=== PATIENT | male | born 1960 | race Caucasian/White ===

== ENCOUNTER 2016-12-24 19:34 | Emergency (ER) | payer SELFPAY ==
[~2016-12-24] VITALS: Ht 182.9 cm; Wt 83.9 kg
--- NOTE | 2016-12-24 20:18 | PHYS DOC ---
Adult General Chief Complaint Chief Complaint: RIB PAIN HPI HPI Patient is a 56 year old M who presents with fall off a ladder. Patient states he was cleaning out gutters at his house and fell off the ladder approximately 10 feet landing on a concrete slab that his left side and chest. Patient denied any trauma to the head or loss of consciousness. Patient denied any other injuries to the extremities upper and lower. Patient complains of left lower chest and left upper quadrant pain. Patient is brought in the emergency room by POV. Patient has no other complaints. Review of Systems Review of Systems GEN: Denies fevers, chills, sweats HEENT: Denies blurred vision, sore throat CV: Left chest wall pain RESP: Denies shortness of air, cough GI: Left upper quadrant pain NEURO: Denies confusion, dizziness MSK: Denies weakness, joint pain/swelling Current Medications Current Medications Current Medications Medications (Trade) Dose Ordered Sig/Linda Start Time Stop Time Status Last Admin Dose Admin Fentanyl Citrate (Fentanyl 2ml Vial) 50 mcg 1X ONCE 12/24/16 22:00 12/24/16 22:01 DC 12/24/16 22:10 50 MCG Info (Do NOT chart on this entry -- for MONITORING) 1 each PRN DAILY PRN 12/24/16 21:00 12/26/16 20:59 Iohexol (Omnipaque 300 Mg/ml) 75 ml 1X ONCE 12/24/16 20:45 12/24/16 20:53 DC 12/24/16 23:03 75 ML Allergies Allergies Allergies Coded Allergies Type Severity Reaction Last Updated Verified No Known Drug Allergies 12/24/16 No Physical Exam Physical Exam GEN.: No apparent distress. Alert and oriented. HEENT: Head is normocephalic, atraumatic NECK: Supple. LUNGS: CTAB.\ CHEST: Positive tender to palpation to the left chest wall midaxillary to the lower ribs HEART: RRR, S1, S2 present. Peripheral pulses intact ABDOMEN: Soft, left upper quadrant tenderness palpation, rebound tenderness, no abdominal distention. Positive bowel sounds. EXTREMITIES: Without any cyanosis. NEUROLOGIC: Normal speech, normal tone PSYCHIATRIC: Normal affect, normal mood. SKIN: No ulcerations Current Patient Data Vital Signs Vital Signs Date Time Temp Pulse Resp B/P (MAP) Pulse Ox O2 Delivery O2 Flow Rate FiO2 12/24/16 22:05 80 14 145/89 (107) 94 Room Air 12/24/16 19:37 98.2 98.2 Lab Values Laboratory Tests Test 12/24/16 22:07 POC Hemoglobin 13.9 g/dL (14-18) L POC Hematocrit 41 % (37-52) POC Sodium 141 mmol/L (135-145) POC Potassium 3.6 mmol/L (3.5-5.0) POC Chloride 102 mmol/L (98-110) POC Total CO2 29 mmol/L (23-32) Anion Gap 15 mmol/L (6-14) H POC Blood Urea Nitrogen 15 mg/dL (8-26) POC Creatinine 1.4 mg/dL (0.5-1.4) Glucose Level 86 mg/dL (70-99) POC Ionized Calcium (Billie) 1.14 mmol/L (1.13-1.32) Laboratory Tests 12/24/16 22:07 EKG EKG [] Radiology/Procedures Radiology/Procedures CT scan of the chest/abdomen/pelvis: Impression: 1. No acute traumatic findings. Subtle cortical irregularity identified in the anterior aspect of the left third rib anteriorly, best visualized on series 2 image 25 seen only on axial image probably artifactual and less likely nondisplaced fracture. Correlate for point tenderness. 2. Moderate amount of stool identified in the rectum. Correlate for fecal impaction. 3. Punctate 1 mm intrarenal collecting system calculus identified in the right kidney. No hydronephrosis. Chest x-ray NAD[] Course & Med Decision Making Course & Med Decision Making Pertinent Labs and Imaging studies reviewed. (See chart for details) ED course: Patient was seen and examined emergency room chest x-ray, CT scan chest/abdomen/ pelvis were ordered 2347: Patient was reevaluated and was sleeping comfortably after receiving pain medication. It was explained to the patient that he has a nondisplaced third rib fracture from his fall recommended deep breathing sizes and will discharge home with pain medication. Recommended short-term follow-up with PCP in one to 2 days. Patient was comfortable being discharged home. Patient wants a lemon [place] soda. MDM: After reviewing the chart, CC/HPI/PMH, physical exam, [lab results], [ radiological results], I do not believe the patient sustained a significant traumatic injury warranting further workup and/or admission at this time. Patient has a nondisplaced third rib fracture on the left is stable for discharge and can be treated with outpatient pain management. Patient is wanted to go home. Patient is stable for discharge. Additional verbal discharge instructions were provided to the patient and that if symptoms get worse or any new symptoms arise that are worrisome to the patient he is to return to the emergency room immediately [] Dragon Disclaimer Dragon Disclaimer This electronic medical record was generated, in whole or in part, using a voice recognition dictation system. Departure Departure Impression: Primary Impression: Left rib fracture Additional Impressions: Fall Chest wall contusion Disposition: HOME, SELF-CARE Condition: IMPROVED Patient Instructions: Rib Fracture, [id number] Additional Instructions: Please follow-up with your family physician in the next one to 2 days and return symptoms increase Scripts Hydrocodone/Apap 5-325 (NORCO 5-325 TABLET) 1 Each Tablet 1-2 TAB PO Q4-6HRS Y for PAIN for 3 Days, #12 TAB Prov: BRISA CISNEROS DO 12/24/16 Ibuprofen (IBUPROFEN) 800 Mg Tablet 800 MG PO PRN Q8HRS Y for PAIN for 10 Days, #30 TAB Prov: BRISA CISNEROS DO 12/24/16 Problem Qualifiers BRISA CISNEROS DO Dec 24, 2016 20:18
[2016-12-24] MEDS ORDERED: IOHEXOL 300 MG/ML 75 ML VIAL IV ONE (20:45)
[2016-12-24] MEDS ORDERED: CONTRAST GIVEN MC PRN (21:00)
[2016-12-24] MEDS ORDERED: fentaNYL PF VIAL 100 MCG/2 ML VIAL IV ONE (22:00)
[2016-12-24 22:13] LABS: POTASSIUM ISTAT 3.6 mmol/L (3.5-5.0)
--- NOTE | 2016-12-24 23:33 | RAD ---
Examination: CT chest abdomen pelvis with IV contrast HISTORY: History of fall, left-sided abdominal pain, left chest pain COMPARISON: None available Technique: Axial CT images of the chest abdomen pelvis were performed with IV contrast. Coronal and sagittal reformats are performed. Exposure: One or more of the following individualized dose reduction techniques were utilized for this examination: 1. Automated exposure control 2. Adjustment of the mA and/or kV according to patient size 3. Use of iterative reconstruction technique. Findings: The visualized thyroid gland grossly appears unremarkable. The caliber of the aorta grossly appears unremarkable. The central airways are patent. No evidence of mediastinal hematoma. Mild coronary artery calcifications. Mild bibasilar lung atelectasis. The visualized spleen, adrenals grossly appears unremarkable. Subcentimeter hypodensity identified in the right lobe of the liver is too small to contrast probably a cyst. The gallbladder is mildly distended. The visualized pancreas grossly appears unremarkable. The stomach is mildly distended. The small bowel is nondilated. The appendix is normal. Feces and gas noted in the colon. Moderate amount of feces identified in the rectum. Urinary bladder is mildly distended. No significant free fluid identified in the pelvis. The bilateral kidneys enhance symmetrically. Punctate 1 mm intrarenal collecting system calculus identified in the right kidney. No evidence of hydronephrosis. Small fat-containing right inguinal hernia. Mild degenerative changes visualized lumbar spine. There is subtle cortical irregularity identified in the anterior aspect of the left third rib anteriorly, best visualized on series 2 image 25 seen only on axial image probably artifactual and less likely nondisplaced fracture. Impression: 1. No acute traumatic findings. Subtle cortical irregularity identified in the anterior aspect of the left third rib anteriorly, best visualized on series 2 image 25 seen only on axial image probably artifactual and less likely nondisplaced fracture. Correlate for point tenderness. 2. Moderate amount of stool identified in the rectum. Correlate for fecal impaction. 3. Punctate 1 mm intrarenal collecting system calculus identified in the right kidney. No hydronephrosis. Electronically signed by: Tra Liang MD (12/24/2016 11:30 PM) [facility]
[2016-12-24 23:47] VITALS: BP 154/93
[2016-12-24] MEDS ORDERED: IBUP-1060 PO (23:53)
[2016-12-24] MEDS ORDERED: HYDR-971 PO (23:53)
--- NOTE | 2016-12-25 08:18 | RAD ---
Chest, 2 views, 12/24/2016: History: Fall off ladder, chest pain The heart size and pulmonary vascularity are normal. No pulmonary infiltrates are seen. There is no evidence of pleural fluid or pneumothorax. Minimal spurring is present in the spine. IMPRESSION: No acute cardiopulmonary abnormality is detected.
== END 2016-12-25 00:09 | disposition home or self-care (01) ==
LOC: ER 19:34
DX: S22.32XA Fracture of one rib, left side, initial encounter for closed fracture (principal); R10.12 Left upper quadrant pain; W11.XXXA Fall on and from ladder, initial encounter; Y93.E9 Activity, other interior property and clothing maintenance; Y92.009 Unspecified place in unspecified non-institutional (private) residence as the place of occurrence of the external cause; Y99.8 Other external cause status
CPT/HCPCS: 36415; 71020; 71260; 74177; 80047; 85014; 85018; 96374; 99284; J3010; Q9967

== ENCOUNTER 2018-11-24 14:17 | Emergency (ER) | payer SELFPAY ==
[~2018-11-24] VITALS: Ht 182.9 cm; Wt 83.9 kg
[~2018-11-24 14:17] MED LIST: HYDR-3164 PO; IBUP-1060 PO
[2018-11-24 14:53] VITALS: BP 150/91
--- NOTE | 2018-11-24 15:11 | RAD ---
EXAM: PA view of the left hand, oblique and lateral views of the left ring finger DATE: 11/24/2018 2:52 PM INDICATION: Fall, left fifth finger injury COMPARISON: No Prior FINDINGS/ IMPRESSION: Oblique fracture through the distal phalanx of the left sixth finger is essentially nondisplaced. Moderate overlying soft tissue swelling is seen. Multifocal degenerative changes most prominent at the middle finger MCP joint and thumb MCP joint. Electronically signed by: Jac Villasenor MD (11/24/2018 3:08 PM) [id number]
[2018-11-24] MEDS ORDERED: TRAM-48 PO (15:18)
--- NOTE | 2018-11-24 15:19 | PHYS DOC ---
Past Medical History Past Medical History: No Pertinent History Past Surgical History: Other Additional Past Surgical Histo: BACK Alcohol Use: None Drug Use: None Adult General Chief Complaint Chief Complaint: FINGER INJURY HPI HPI Patient is a 58 year old right-handed male who presents with complaining of l eft pinky finger injury. Patient states he was mowing the grass and had a fall one week ago and injured his left fifth finger with a constant pain that did not get better with [id number] medication. Patient denies focal neurodeficit and other injuries. Review of Systems Review of Systems Constitutional: Denies fever or chills [] Eyes: Denies change in visual acuity, redness, or eye pain [] HENT: Denies nasal congestion or sore throat [] Respiratory: Denies cough or shortness of breath [] Cardiovascular: No additional information not addressed in HPI [] GI: Denies abdominal pain, nausea, vomiting, bloody stools or diarrhea [] : Denies dysuria or hematuria [] Musculoskeletal: Denies back pain, reports joint pain [] Integument: Denies rash or skin lesions [] Neurologic: Denies headache, focal weakness or sensory changes [] Endocrine: Denies polyuria or polydipsia [] All other systems were reviewed and found to be within normal limits, except as documented in this note. Allergies Allergies Allergies Coded Allergies Type Severity Reaction Last Updated Verified No Known Drug Allergies 12/24/16 No Physical Exam Physical Exam Constitutional: Well developed, well nourished, mild distress, non-toxic appearance. [] HENT: Normocephalic, atraumatic. Eyes: PERRLA, EOMI, conjunctiva normal, no discharge. [] Neck: Normal range of motion, no tenderness, supple, no stridor. [] Cardiovascular:Heart rate regular rhythm, no murmur [] Lungs & Thorax: Bilateral breath sounds clear to auscultation [] Extremities: Left fifth finger with tenderness and distal phalanx and painful range of motion, no neurovascular deficit. Neurologic: Alert and oriented X 3, normal motor function, normal sensory function, no focal deficits noted. [] Psychologic: Affect normal, judgement normal, mood normal. [] Current Patient Data Vital Signs Vital Signs Date Time Temp Pulse Resp B/P (MAP) Pulse Ox O2 Delivery O2 Flow Rate FiO2 11/24/18 14:53 98.2 100 16 150/91 (110) 98 Room Air 98.2 EKG EKG [] Radiology/Procedures Radiology/Procedures [][facility] [address] [place] [address] IMAGING REPORT Signed PATIENT: ANTHONY OWENS ACCOUNT: [id number] : 1960 LOCATION: ER AGE: 58 SEX: M EXAM STATUS: REG ER ORD. PHYSICIAN: MONI POWELL MD REASON: LEFT TIP 5TH FINGER INJURY, FELL IN GRASS LAST WEEK. PROCEDURE: FINGER(S) LEFT EXAM: PA view of the left hand, oblique and lateral views of the left ring finger DATE: 11/24/2018 2:52 PM INDICATION: Fall, left fifth finger injury COMPARISON: No Prior FINDINGS/ IMPRESSION: Oblique fracture through the distal phalanx of the left sixth finger is essentially nondisplaced. Moderate overlying soft tissue swelling is seen. Multifocal degenerative changes most prominent at the middle finger MCP joint and thumb MCP joint. Electronically signed by: Jac Mesa MD (11/24/2018 3:08 PM) [id number] DICTATED and SIGNED BY: JAC MESA MD DATE: 11/24/18 1508 Course & Med Decision Making Course & Med Decision Making Pertinent Imaging studies reviewed. (See chart for details) Evaluation of patient in ER showed 58-year-old right-handed male patient with injury to left fifth finger 1 week ago. X-ray showed an oblique nondisplaced fracture. Splint was applied and patient was advised to follow-up with [facility] lead orthopedic physician. Dragon Disclaimer Dragon Disclaimer This electronic medical record was generated, in whole or in part, using a voice recognition dictation system. Departure Departure Impression: Primary Impression: Closed fracture of phalanx of finger of left hand Disposition: 01 HOME, SELF-CARE (at 1514) Condition: STABLE Referrals: BRAULIO PEÑA MD (PCP) PRINCESS GALLEGOS MD Patient Instructions: Finger Fracture Additional Instructions: Apply ice on the affected area Follow-up with [facility] lead orthopedic physician in 2-3 days Return to ER if not getting better Scripts Tramadol Hcl (ULTRAM) 50 Mg Tablet 50 MG PO Q6HRS PRN for PAIN, #14 TAB 0 Refills Prov: MONI POWELL MD 11/24/18 Problem Qualifiers Primary Impression: Closed fracture of phalanx of finger of left hand Encounter type: initial encounter Finger: little finger Phalanx: distal Fracture alignment: nondisplaced Qualified Codes: S62.667A - Nondisplaced fracture of distal phalanx of left little finger, initial encounter for closed fracture MONI POWELL MD Nov 24, 2018 15:19
== END 2018-11-24 15:30 | disposition home or self-care (01) ==
LOC: ER 14:17
DX: S62.667A Nondisplaced fracture of distal phalanx of left little finger, initial encounter for closed fracture (principal); W18.39XA Other fall on same level, initial encounter; Y93.89 Activity, other specified; Y92.89 Other specified places as the place of occurrence of the external cause; Y99.8 Other external cause status
CPT/HCPCS: 29130; 73140; 99284

== ENCOUNTER 2019-10-22 22:09 | Emergency (ER) | payer SELFPAY ==
[~2019-10-22] VITALS: Ht 182.9 cm; Wt 84.0 kg
[~2019-10-22 22:09] MED LIST changes: +TRAM-48 PO
[2019-10-22 22:26] VITALS: BP 166/95
[2019-10-22 23:18] LABS: BASO # 0.1 x10^3/uL (0.0-0.2); BASO % 1 % (0-3); EOS # 0.2 x10^3/uL (0.0-0.7); EOS % 2 % (0-3); HEMATOCRIT 40.3 % (39.0-53.0); LYMPH # 2.2 x10^3/uL (1.0-4.8); LYMPH % 32 % (24-48); MEAN CORPUSCULAR HEMOGLOBIN 31 pg (25-35); MEAN CORPUSCULAR HGB CONC 35 g/dL (31-37); MEAN CORPUSCULAR VOLUME 90 fL (79-100); MONO # 0.5 x10^3/uL (0.0-1.1); MONO % 7 % (0-9); NEUT # 3.9 x10^3/uL (1.8-7.7); NEUT % 58 % (31-73); PLATELET COUNT 188 x10^3/uL (140-400); RED CELL DISTRIBUTION WIDTH 13.7 % (11.5-14.5); WHITE BLOOD COUNT 6.8 x10^3/uL (4.0-11.0)
[2019-10-22 23:27] LABS: CALCIUM 8.6 mg/dL (8.5-10.1); CREATININE 1.3 mg/dL (0.7-1.3); GFR 57.1; POTASSIUM 3.3 mmol/L (3.5-5.1)
[2019-10-22] MEDS ORDERED: IV NORMAL SALINE 1000ML BAG 1,000 ML IV ONE (23:30)
[2019-10-22] MEDS ORDERED: ONDANSETRON PF 4 MG/2 ML VIAL. IVP ONE (23:30)
[2019-10-22 23:34] LABS: ALBUMIN 3.7 g/dL (3.4-5.0); ALBUMIN/GLOBULIN RATIO 1.2 (1.0-1.7); TOTAL BILIRUBIN 0.2 mg/dL (0.2-1.0); TOTAL PROTEIN 6.8 g/dL (6.4-8.2)
[2019-10-23] MEDS ORDERED: POTASSIUM CHLORIDE 20 MEQ TABLET.ER. PO ONE
--- NOTE | 2019-10-23 00:57 | PHYS DOC ---
Past Medical History Past Medical History: No Pertinent History (MORAIMA PERERA APRN) Past Surgical History: Other Additional Past Surgical Histo: "back surgery" (MORAIMA PERERA APRN) Smoking Status: Former Smoker Alcohol Use: None Drug Use: None (MORAIMA PERERA APRN) General Adult EDM: Chief Complaint: NAUSEA/VOMITING/DIARRHA HPI: HPI: Patient is a 58 year old male who presents with complaints of a bee sting to his scalp last night at approximately 1930. Patient states that he went to work at 6:00 this morning but left at approximately 11:00 this morning with a nausea sensation without vomiting. Patient denies abdominal pain or diarrhea or blood in his stool. Patient states that his nausea was almost completely resolved after drinking a Dr. Pepper at home this afternoon. Patient is concerned that he will require work excuse for tomorrow and the next day. Patient states he still feels a little nauseated but continues to deny abdominal pain. Patient denies any fever or chills, vision changes, nasal congestion or sore throat. Patient denies any cough or shortness of breath. Patient denies any chest pain or peripheral edema. Patient denies any problems urinating. Patient denies back pain or joint pain. Patient denies skin rashes. Patient denies headaches focal weaknesses or sensory changes. Patient denies any increase in urination or increasing drinking fluids. Patient denies any swollen glands. Recent depression or anxiety. Patient states that he does work outside and knows he is supposed to drink plenty of fluids but did not do that today at work. Patient states he actually does not feel dehydrated but would like to have a work excuse for tomorrow because he is feeling slightly nauseated. Patient denies other people living in his home with the same symptoms. (MORAIMA PERERA APRN) Review of Systems: Review of Systems: Constitutional: Denies fever or chills. Eyes: Denies change in visual acuity. HENT: Denies nasal congestion or sore throat. Respiratory: Denies cough or shortness of breath. Cardiovascular: Denies chest pain or edema. GI: Denies abdominal pain, vomiting, bloody stools or diarrhea. Patient complains of nausea : Denies dysuria. Musculoskeletal: Denies back pain or joint pain. Integument: Denies rash. Neurologic: Denies headache, focal weakness or sensory changes. Endocrine: Denies polyuria or polydipsia. Lymphatic: Denies swollen glands. Psychiatric: Denies depression or anxiety. PsychoSocial: Patient complains of needing a work excuse for the next 2 days. (MORAIMA PERERA APRN) Heart Score: Risk Factors: Risk Factors: DM, Current or recent (<one month) smoker, HTN, HLP, family history of CAD, obesity. Risk Scores: Score 0 - 3: 2.5% MACE over next 6 weeks - Discharge Home Score 4 - 6: 20.3% MACE over next 6 weeks - Admit for Clinical Observation Score 7 - 10: 72.7% MACE over next 6 weeks - Early Invasive Strategies (MORAIMA PERERA APRN) Current Medications: Current Medications Medications (Trade) Dose Ordered Sig/Linda Start Time Stop Time Status Last Admin Dose Admin Ondansetron HCl (Zofran) 4 mg 1X ONCE 10/22/19 23:30 10/22/19 23:31 DC 10/22/19 23:12 4 MG Potassium Chloride (Klor-Con) 40 meq 1X ONCE 10/23/19 00:00 10/23/19 00:01 DC 10/22/19 23:44 40 MEQ Sodium Chloride 1,000 ml @ 1,000 mls/hr 1X ONCE 10/22/19 23:30 10/23/19 00:29 DC 10/22/19 23:07 1,000 MLS/HR (MORAIMA PERERA APRN) Allergies: Allergies: Allergies Coded Allergies Type Severity Reaction Last Updated Verified No Known Drug Allergies 12/24/16 No (MORAIMA PERERA APRN) Physical Exam: PE: Constitutional: Well developed, well nourished, no acute distress, non-toxic appearance. HENT: Normocephalic, atraumatic, bilateral external ears normal, oropharynx moist, no oral exudates, nose normal. Eyes: PERRLA, EOMI, conjunctiva normal, no discharge. Pupils 4 mm bilateral Neck: Normal range of motion, no tenderness, supple, no stridor. Cardiovascular:Heart rate regular rhythm, no murmur heart sounds S1-S2, no abnormalities noted per auscultation. Lungs & Thorax: Bilateral breath sounds clear to auscultation all lung haddad. Abdomen: Bowel sounds normal all 4 quadrants, soft, no tenderness, no masses, no pulsatile masses. Skin: Warm, dry, no erythema, no rash. Back: No tenderness, no CVA tenderness. Extremities: No tenderness, no cyanosis, no clubbing, ROM intact, no edema. Neurologic: Alert and oriented X 3, normal motor function, normal sensory function, no focal deficits noted. Psychologic: Affect normal, judgement normal, mood normal. (MORAIMA PERERA APRN) Current Patient Data: Labs: Laboratory Tests Test 10/22/19 22:05 White Blood Count 6.8 x10^3/uL (4.0-11.0) Red Blood Count 4.50 x10^6/uL (4.30-5.70) Hemoglobin 14.0 g/dL (13.0-17.5) Hematocrit 40.3 % (39.0-53.0) Mean Corpuscular Volume 90 fL (79-100) Mean Corpuscular Hemoglobin 31 pg (25-35) Mean Corpuscular Hemoglobin Concent 35 g/dL (31-37) Red Cell Distribution Width 13.7 % (11.5-14.5) Platelet Count 188 x10^3/uL (140-400) Neutrophils (%) (Auto) 58 % (31-73) Lymphocytes (%) (Auto) 32 % (24-48) Monocytes (%) (Auto) 7 % (0-9) Eosinophils (%) (Auto) 2 % (0-3) Basophils (%) (Auto) 1 % (0-3) Neutrophils # (Auto) 3.9 x10^3/uL (1.8-7.7) Lymphocytes # (Auto) 2.2 x10^3/uL (1.0-4.8) Monocytes # (Auto) 0.5 x10^3/uL (0.0-1.1) Eosinophils # (Auto) 0.2 x10^3/uL (0.0-0.7) Basophils # (Auto) 0.1 x10^3/uL (0.0-0.2) Sodium Level 144 mmol/L (136-145) Potassium Level 3.3 mmol/L (3.5-5.1) L Chloride Level 106 mmol/L (98-107) Carbon Dioxide Level 29 mmol/L (21-32) Anion Gap 9 (6-14) Blood Urea Nitrogen 21 mg/dL (8-26) Creatinine 1.3 mg/dL (0.7-1.3) Estimated GFR (Cockcroft-Gault) 57.1 BUN/Creatinine Ratio 16 (6-20) Glucose Level 117 mg/dL (70-99) H Calcium Level 8.6 mg/dL (8.5-10.1) Total Bilirubin 0.2 mg/dL (0.2-1.0) Aspartate Amino Transferase (AST) 21 U/L (15-37) Alanine Aminotransferase (ALT) 25 U/L (16-63) Alkaline Phosphatase 78 U/L (46-116) Total Protein 6.8 g/dL (6.4-8.2) Albumin 3.7 g/dL (3.4-5.0) Albumin/Globulin Ratio 1.2 (1.0-1.7) Laboratory Tests 10/22/19 22:05 Laboratory Tests 10/22/19 22:05 Vital Signs: Vital Signs Date Time Temp Pulse Resp B/P (MAP) Pulse Ox O2 Delivery O2 Flow Rate FiO2 10/22/19 22:26 98.7 85 12 166/95 (118) 98 Room Air 98.7 (MORAIMA PERERA APRN) EKG: EKG: [] (MORAIMA PERERA APRN) Radiology/Procedures: Radiology/Procedures: [] (MORAIMA PERERA APRN) Course & Med Decision Making: Course & Med Decision Making Pertinent Labs and Imaging studies reviewed. (See chart for details) 58-year-old male presents emergency department complaining of a bee sting to his scalp last night approximately 1930. Patient woke up for work at 6:00 this morning feeling normal. Patient states around 11:00 he started feeling nauseated and left work to go home. Patient states he did not vomit and does not have any abdominal pain or diarrhea. Patient states he is concerned that he will need a work excuse for leaving work early. Patient also states he would like a work excuse for the next 2 days. Patient states his symptoms almost resolved after drinking a Dr. Pepper at home and resting. Patient states that he does work outside and sometimes he gets dehydrated when he does not drink enough water. Patient states he does not necessarily feel dehydrated today. Patient is lab work did not show signs of dehydration however patient was hypokalemic and p.o. potassium was given in the emergency department. Patient was also given a liter of saline, as well as 4 mg of Zofran for nausea. Patient's symptoms resolved during his ER stay. Patient refused to give the ordered urine. Patient was discharged home without prescriptions. Patient was given a work excuse for the next 2 days. Patient's discharge instructions were reviewed and the patient had no questions or concerns. Patient was agreeable to his discharge instructions home. Patient discharged to home care with work e xcuse for 2 days without prescriptions. Patient had no further questions. (MORAIMA PERERA APRN) Dragon Disclaimer: Dragon Disclaimer: This electronic medical record was generated, in whole or in part, using a voice recognition dictation system. (MORAIMA PERERA APRN) Departure Departure Impression: Primary Impression: Nausea Disposition: HOME, SELF-CARE Condition: IMPROVED Referrals: BRAULIO PEÑA MD (PCP) Patient Instructions: Nausea, Adult Additional Instructions: Drink plenty of fluids while working outside. You have been given a work excuse for the next 2 days and may return to work this , 10/25/2019. Return to the emergency department for any worsening symptoms or further concerns. Otherwise follow-up with your primary care doctor soon. Justicifation of Admission Dx: Justifications for Admission: Justification of Admission Dx: N/A (MORAIMA PERERA APRN) Attending Signature Attending Signature I have participated in the care of this patient and I have reviewed and agree with all pertinent clinical information above including history, exam, and recommendations. (MEHRAN TELLO DO) MORAIMA PERERA APRN Oct 23, 2019 00:57 MEHRAN TELLO DO Oct 23, 2019 03:08
== END 2019-10-23 01:05 | disposition home or self-care (01) ==
LOC: ER 22:09
DX: S00.86XA Insect bite (nonvenomous) of other part of head, initial encounter (principal); R11.0 Nausea; R51 Headache; Z87.891 Personal history of nicotine dependence; W57.XXXA Bitten or stung by nonvenomous insect and other nonvenomous arthropods, initial encounter; Y93.89 Activity, other specified; Y92.89 Other specified places as the place of occurrence of the external cause; Y99.8 Other external cause status
CPT/HCPCS: 36415; 80053; 85025; 96361; 96374; 99283; J2405; J7030

== ENCOUNTER 2021-07-22 11:54 | Emergency (ER) | payer OTHER ==
[~2021-07-22] VITALS: Ht 172.7 cm; Wt 93.8 kg
[2021-07-22 12:03] VITALS: BP 178/100
[2021-07-22] MEDS ORDERED: oxyCODONE/APAP 5/325 1 TAB TABLET PO ONE (12:15)
[2021-07-22] MEDS ORDERED: KETOROLAC 60 MG/2 ML VIAL. IM ONE (12:30)
[2021-07-22] MEDS ORDERED: HYDROcodone/APAP 5/325MG 1 TAB TABLET PO ONE (12:45)
--- NOTE | 2021-07-22 13:16 | PHYS DOC ---
Past Medical History Past Medical History: No Pertinent History Past Surgical History: Other Additional Past Surgical Histo: "back surgery" Smoking Status: Former Smoker Alcohol Use: None Drug Use: None Adult General Chief Complaint Chief Complaint: NECK PAIN HPI HPI Patient is a 60 year old male presenting to the emergency department for evaluation of neck and back pain that has been going on for the past 5 to 6 days. He says that he slept in his car with his head bent in an awkward position and he heard that morning after waking up however the pain went away but it came back worse a day later. He says that it hurts to move his head and neck and that certain positions make it worse as when he brings his arms up it improves his pain but when they are hanging down low makes the pain worse. He says that palpation makes his pain worse as well. He denies any traumatic injury and and denies any vision changes bowel or bladder incontinence saddle anesthesia unilateral weakness numbness or tingling. He has not tried taking anything for the pain. 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 Review of Systems Review of Systems Constitutional: Denies fever or chills [] Respiratory: Denies cough or shortness of breath [] Cardiovascular: No additional information not addressed in HPI [] GI: Denies abdominal pain, nausea, vomiting, bloody stools or diarrhea [] Musculoskeletal: + neck and back pain Integument: Denies rash or skin lesions [] Neurologic: Denies headache, focal weakness or sensory changes [] All other systems were reviewed and found to be within normal limits, except as documented in this note. Current Medications Current Medications Current Medications Medications (Trade) Dose Ordered Sig/[facility] Start Time Stop Time Status Last Admin Dose Admin Acetaminophen/ Hydrocodone Bitart (Lortab 5/325) 2 tab 1X ONCE 07/22/21 12:45 07/22/21 12:46 DC 07/22/21 12:45 2 TAB Ketorolac Tromethamine (Toradol Im) 60 mg 1X ONCE 07/22/21 12:30 07/22/21 12:31 DC 07/22/21 12:29 60 MG Oxycodone/ Acetaminophen (Percocet 5/325) 2 tab 1X ONCE 07/22/21 12:15 07/22/21 12:17 DC Allergies Allergies Allergies Coded Allergies Type Severity Reaction Last Updated Verified No Known Drug Allergies 12/24/16 No Physical Exam Physical Exam Constitutional: Well developed, well nourished, no acute distress, non-toxic appearance. [] Neck: Normal range of motion, no tenderness, supple, no stridor. [] Cardiovascular:Heart rate regular rhythm, no murmur [] Lungs & Thorax: Bilateral breath sounds clear to auscultation [] Abdomen: Bowel sounds normal, soft, no tenderness, no masses, no pulsatile masses. [] Skin: Warm, dry, no erythema, no rash. [] Back: Positive midline and paraspinal cervical and thoracic tenderness but no midline lumbar tenderness. Negative Kernig's and Brudzinski's however patient had pain with active and passive neck flexion extension and rotation. Extremities: No tenderness, no cyanosis, no clubbing, ROM intact, no edema. [] Neurologic: Alert and oriented X 3, normal motor function, normal sensory function, no focal deficits noted. [] Current Patient Data Vital Signs Vital Signs Date Time Temp Pulse Resp B/P (MAP) Pulse Ox O2 Delivery O2 Flow Rate FiO2 07/22/21 12:45 18 96 Room Air 07/22/21 12:03 96.2 99 178/100 (126) 96.2 EKG EKG [] Radiology/Procedures Radiology/Procedures [] Course & Med Decision Making Course & Med Decision Making Patient has symptoms that are classic for musculoskeletal symptoms and no red flag signs or symptoms necessitating emergent MRI. I will check CTs treat pain and reassess. CTs are negative for acute process and his repeat neurologic exam is normal. Given patient appears well with normal vital signs benign physical exam work-up and is asking to go home I will discharge him in stable condition I did tell him all incidental findings on the imaging and the need for follow-up and I also told him that he has hypertension here and that he should follow with a primary care provider for this as well. Patient aware and agreeable with plan for discharge and verbalized understanding of the need for short-term follow-up and strict ED return precautions discussed worsening pain neurologic changes with general concerns. Dragon Disclaimer Dragon Disclaimer This electronic medical record was generated, in whole or in part, using a voice recognition dictation system. Departure Departure Impression: Primary Impression: Thoracic back pain Additional Impressions: Cervical pain (neck) Hypertension Disposition: 01 HOME / SELF CARE / HOMELESS Condition: STABLE Referrals: BRAULIO PEÑA MD (PCP) Patient Instructions: Cervical Sprain Scripts Ibuprofen (IBUPROFEN) 600 Mg Tablet 600 MG PO PRN Q6HRS PRN for INFLAMMATION for 7 Days, #28 TAB Prov: BRAULIO ENRIQUE DO 07/22/21 Hydrocodone Bit/Acetaminophen (HYDROCODONE-APAP 5-325 ) 1 Tab Tablet 1 TAB PO PRN Q6HRS PRN for PAIN, #14 TAB 0 Refills Prov: BRAULIO ENRIQUE DO 07/22/21 Problem Qualifiers Primary Impression: Thoracic back pain Chronicity: acute Back pain laterality: bilateral Qualified Codes: M54.6 - Pain in thoracic spine Additional Impressions: Hypertension Hypertension type: unspecified Qualified Codes: I10 - Essential (primary) hypertension BRAULIO ENRIQUE DO Jul 22, 2021 13:16
--- NOTE | 2021-07-22 15:05 | RAD ---
PQRS Compliance Statement: One or more of the following individualized dose reduction techniques were utilized for this examinat ion: 1. Automated exposure control 2. Adjustment of the mA and/or kV according to patient size 3. Use of iterative reconstruction technique CT THORACIC SPINE WO, CT CERVICAL SPINE WO Clinical Indication: Reason: BILATERAL SHOULDER PAIN, NECK PAIN / Spl. Instructions: / History: Comparison: CT chest abdomen and pelvis with contrast December 24, 2016. Technique: Noncontrast helical CT of the cervical spine and thoracic was performed. Axial, sagittal, and coronal reconstructions were obtained. Findings: There is no evidence of acute fracture or acute malalignment of the cervical spine. The facet joints are hypertrophic but intact. The vertebral body height and alignment are maintained. There is disc sp gonzalez narrowing and degenerative endplate spurring of C5/C6 and C6/C7. C4/C5 and C7/T1 are less severe. At C3/C4 there is severe left neural foraminal narrowing mainly due to facet hypertrophy. At C4/C5 th ere is severe right neural foraminal narrowing due to facet hypertrophy. At C5/C6 there is moderate b ilateral neural foraminal narrowing and probably mild to moderate central canal stenosis. Visualized soft tissues of the neck demonstrate no significant abnormalities. There is no acute fracture or malalignment of the thoracic spine. There is degenerative endplate spur ring. The disc spaces are relatively maintained. There is no high-grade central canal stenosis of the thoracic spine. There is a small posterior disc bulge of L1/L2. The central canal is adequate. There is mild bilateral dependent atelectasis. There is coronary artery disease. Tiny calcification o f the left kidney is probably vascular. IMPRESSION: 1. No acute fracture or malalignment of the cervical or thoracic spine. 2. Moderate spondylosis of the cervical spine. Electronically signed by: Candido Flowers MD (07/22/2021 3:02 PM) [id number]
[2021-07-22] MEDS ORDERED: IBUP-1007 PO (15:17)
[2021-07-22] MEDS ORDERED: HYDR-2761 PO (15:17)
== END 2021-07-22 15:47 | disposition home or self-care (01) ==
LOC: ER 11:54
DX: M54.6 Pain in thoracic spine (principal); M54.2 Cervicalgia; R51.9 Headache, unspecified; Z87.891 Personal history of nicotine dependence
CPT/HCPCS: 72125; 72128; 96372; 99284; J1885